=== PATIENT | male | born 1955 | race Two or more races ===

== ENCOUNTER 2016-09-19 13:41 | Emergency (ER) | payer OTHER ==
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
[2016-09-19 15:10] LABS: Basophils % (A) 0 %; CH 31.6; CHCM 33.7; Eosinophils # (A) 0.2 k/uL (0-0.7); Eosinophils % (A) 3 %; HCT 43.9 % (39.0-53.0); HDW 2.54; HGB 14.9 gm/dL (13.0-17.5); Luc # (Auto) 0.16; Luc % (Auto) 2; Lymphocytes # (A) 1.6 k/uL (1.0-4.8); Lymphocytes % (A) 23 %; MCH 31.9 pg (25.0-35.0); MCHC 33.9 g/dL (31.0-37.0); MCV 94.2 fL (80.0-100.0); Mean Platelet Volume 7.8; Monocytes # (A) 0.4 k/uL (0-1.0); Monocytes % (A) 5 %; Neutrophils # (A) 4.5 k/uL (1.3-7.7); Neutrophils % (A) 67 %; RBC 4.66 m/uL (4.30-5.90); RDW 13.3 % (11.5-15.5); WBC 6.8 k/uL (3.8-10.6); WBC (Perox) 6.88
[2016-09-19 15:22] LABS: ALT 22 U/L (21-72); AST 16 U/L (17-59); Alkaline Phosphatase 57 U/L (38-126); Anion Gap 10 mmol/L; Blood Urea Nitrogen 14 mg/dL (9-20); Calcium 8.9 mg/dL (8.4-10.2); Carbon Dioxide 21 mmol/L (22-30); Chloride 108 mmol/L (98-107); Glucose 107 mg/dL (74-99); Magnesium 1.8 mg/dL (1.6-2.3); Non-African American GFR(MDRD) >60 (>60 ml/min/1.73 sqM); Potassium 4.8 mmol/L (3.5-5.1); Sodium 139 mmol/L (137-145); Total Bilirubin 0.3 mg/dL (0.2-1.3); Total Protein 7.2 g/dL (6.3-8.2)
--- NOTE | 2016-09-19 15:34 | CT ---
EXAMINATION TYPE: CT brain wo con DATE OF EXAM: 09/19/2016 3:27 PM COMPARISON: NONE HISTORY: Patient complains of altered mental status. Inability to concentrate and complete tasks. CT DLP: [address] of the brain was performed. The ventricles, basal cisterns and sulci overlying the cerebral convexities demonstrate mild enlargem ent. There is no evidence for intracranial hemorrhage or sulcal effacement. There is decreased attenuation about the periventricular white matter and deep white matter of both c erebral hemispheres, compatible with chronic small vessel ischemia. Differential diagnosis does inclu de demyelination. No mass effects are seen.No midline shift. Osseous calvarium is intact. If symptoms persist consider MRI. IMPRESSION: 1. Age related atrophic and chronic small vessel ischemic change without acute intracranial process s een at this time.
[2016-09-19 16:51] LABS: Appearance,Urine Clear (Clear); Bilirubin,Urine Negative (Negative); Glucose,Urine (UA) Negative (Negative); Ketones,Urine Negative (Negative); Leukocyte Esterase,Urine Negative (Negative); Nitrite,Urine Negative (Negative); Protein,Urine Negative (Negative); Specific Gravity,Urine 1.014 (1.001-1.035); UA Billing (MACRO vs. MICRO) CHEM; Urobilinogen,Urine <2.0 mg/dL (<2.0)
[2016-09-19 17:57] VITALS: TEMP 97.4
[2016-09-19 18:56] VITALS: BP 134/75; PULSE 54; RESP 16
== END 2016-09-19 19:07 | disposition home or self-care (01) ==
LOC: EC 13:41
DX: F32.9 Major depressive disorder, single episode, unspecified (principal); F15.10 Other stimulant abuse, uncomplicated; F17.200 Nicotine dependence, unspecified, uncomplicated; Z79.899 Other long term (current) drug therapy
CPT/HCPCS: 36415; 70450; 80053; 80306; 81003; 82075; 83735; 85025; 99284

== ENCOUNTER → 2020-08-04 | Outpatient (CLI) | payer MEDICAID ==
--- NOTE | 2020-08-04 14:24 | MR ---
MRI right hip HISTORY: Right hip pain Multiplanar multisequence imaging obtained through the pelvis with small [id number] images through the right hip No comparisons There is grade 2 to grade III chondromalacia within the right hip. Some increased signal at the level of the acetabulum may represent subchondral geode formation, some T2 bright signal present at the le mmeo of the lateral acetabula could represent para labral cyst, difficult to exclude labral tear. Ther e is remodeling of the humeral head with the joint space loss. There is focal low signal present in t he proximal metaphyseal right femur on T1 and T2-weighted images which may represent bone island, cor relate with plain film. No fracture or dislocation. Some increased signal is present at the insertion of the gluteal tendon laterally suggesting strain, possibly partial tear, no sizable joint effusion. There is urinary bladder wall thickening. Prostatic enlargement is present. Sacroiliac joints are sy mmetric and unremarkable. Degenerative disc changes are present at the lower lumbar spine. IMPRESSION: Osteoarthritis. Probable bone island proximal right femur, correlate with plain film. Pos sible chronic bladder outlet obstruction. Possible strain or partial tear of the gluteus medius tendo n insertion
== END | disposition home or self-care (01) ==
LOC: RADMRIMAIN 08:01
PROVIDERS: ATTEND Orthopaedic Surgery
DX: M16.11 Unilateral primary osteoarthritis, right hip (principal)